=== PATIENT | male | born 1990 | race Caucasian/White ===

== ENCOUNTER 2016-06-26 23:23 | Emergency (ER) | payer SELFPAY ==
[2016-06-26] MEDS ORDERED: Ondansetron ODT 4 MG TAB ONE (23:28)
[2016-06-26 23:48] LABS: Bilirubin Negative (Negative); Blood, Urine Negative (Negative); Clarity Clear (Clear); Glucose, Urine (Dipstick) Negative (Negative); Leukocyte Negative (Negative); Nitrite Negative (Negative); Protein, Urine (Dipstick) 30 mg/dL (Neg-Trace); pH, Urine 8.5 (5.0-9.0)
[2016-06-26 23:54] LABS: Bacteria/HPF Rare-Few HPF (None Seen); RBC/HPF 0-3 HPF (0-3); WBC/HPF 0-3 HPF (0-3)
[2016-06-26] MEDS ORDERED: Metoclopramide HCl 10 MG/2 ML VIAL ONE (23:54)
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
== END 2016-06-27 00:15 | disposition home or self-care (01) ==
LOC: MADERS 23:23
DX: R11.2 Nausea with vomiting, unspecified (principal); F32.9 Major depressive disorder, single episode, unspecified; F17.210 Nicotine dependence, cigarettes, uncomplicated
CPT/HCPCS: 81003; 81015; 96372; J2765; Q0162

== ENCOUNTER 2021-07-21 | Emergency (ER) | payer BC, SELFPAY ==
[2021-07-21] MEDS ORDERED: Sodium Chloride 0.9% 1,000 ML ONE (00:19)
[2021-07-21] MEDS ORDERED: Prochlorperazine 10 MG/2 ML VIAL ONE (00:19)
[2021-07-21] MEDS ORDERED: diphenhydrAMINE 50 MG/ML VIAL ONE (00:26)
[2021-07-21] MEDS ORDERED: methylPREDNISolone Sod Succ/PF 125 MG/2 ML VIAL ONE (00:26)
[2021-07-21] MEDS ORDERED: methylPREDNISolone Acetate 40 mg/ml Vial ONE (00:28)
[2021-07-21] MEDS ORDERED: Famotidine/PF 20 mg/2ml Vial ONE (00:28)
[2021-07-21 00:41] LABS: #Basophils 0.1 thou/uL (0.0-0.2); #Eosinphils 0.3 thou/uL (0.0-0.7); #Monocytes 0.4 thou/uL (0.11-0.59); #Neutrophils 2.8 thou/uL (1.40-6.50); %Basophils 1.4 % (0.0-1.0); %Monocytes 7.6 % (0.0-10.0); %Neutrophils 50.1 % (42.0-75.0); Hemoglobin 14.5 g/dL (14.0-18.0); Mean Corpuscular HGB CONC 33.4 g/dL (32.0-36.0); Mean Corpuscular Volume 83.9 fL (78.0-98.0); Mean Platelet Volume 7.9 fL (7.4-10.4); Platelet Count 220 thou/uL (130-400); RBC Distribution Width 12.1 % (11.5-14.5); Red Blood Cell (RBC) Count 5.18 mill/uL (4.70-6.10); White Blood Cell (WBC) Count 5.6 thou/uL (4.8-10.8)
[2021-07-21 01:02] LABS: ALT (SGPT) 33 U/L (8-55); AST (SGOT) 35 U/L (5-34); Albumin 4.1 g/dL (3.5-5.0); Alkaline Phosphatase 82 U/L (40-110); Anion Gap 11 mmol/L (10-20); BUN (Urea Nitrogen) 18 mg/dL (8.9-20.6); Bilirubin, Total 0.4 mg/dL (0.2-1.2); Calc. Creatinine Clearance 0 mL/min (70-130); Calcium 8.8 mg/dL (7.8-10.44); Carbon Dioxide 28 mmol/L (22-29); Chloride 105 mmol/L (98-107); Glucose 113 mg/dL (70-105); Lipase 31 U/L (8-78); Potassium 3.3 mmol/L (3.5-5.1); Protein, Total 7.1 g/dL (6.0-8.3); Sodium 141 mmol/L (136-145)
[2021-07-21 01:59] LABS: Bilirubin Negative (Negative); Blood, Urine Negative (Negative); Clarity Clear (Clear); Glucose, Urine (Dipstick) Negative (Negative); Ketone, Urine Negative (Negative); Leukocyte Negative (Negative); Nitrite Negative (Negative); Protein, Urine (Dipstick) Negative (Neg-Trace)
[2021-07-21] MEDS ORDERED: Iopamidol 370 76% 100 ML VIAL ONE (10:50)
== END 2021-07-21 03:53 | disposition home or self-care (01) ==
LOC: MADERS
DX: R11.2 Nausea with vomiting, unspecified (principal); R10.84 Generalized abdominal pain; I10 Essential (primary) hypertension; F17.200 Nicotine dependence, unspecified, uncomplicated; Z87.19 Personal history of other diseases of the digestive system
CPT/HCPCS: 74177; 80053; 81003; 83605; 83690; 85025; 96365; 96375; J0780; J1200; J2920; J2930; J7050; Q9967; S0028

== ENCOUNTER 2022-06-23 | Emergency (ER) | payer SELFPAY ==
[2022-06-23 00:39] LABS: #Basophils 0.1 thou/uL (0.0-0.2); #Eosinphils 0.3 thou/uL (0.0-0.7); #Lymphocytes 2.9 thou/uL (1.20-3.40); #Monocytes 0.4 thou/uL (0.11-0.59); #Neutrophils 4.9 thou/uL (1.40-6.50); %Basophils 1.1 % (0.0-1.0); %Eosinophils 3.5 % (0.0-10.0); %Lymphocytes 33.5 % (21.0-51.0); %Monocytes 4.7 % (0.0-10.0); %Neutrophils 57.1 % (42.0-75.0); Hemoglobin 15.5 g/dL (14.0-18.0); Mean Corpuscular HGB CONC 33.6 g/dL (32.0-36.0); Mean Corpuscular Hemoglobin 27.9 pg (27.0-31.0); Mean Platelet Volume 8.6 fL (7.4-10.4); Platelet Count 273 10x3/uL (130-400); RBC Distribution Width 11.4 % (11.5-14.5); Red Blood Cell (RBC) Count 5.55 mill/uL (4.70-6.10); White Blood Cell (WBC) Count 8.6 10x3/uL (4.8-10.8)
[2022-06-23 01:00] LABS: ALT (SGPT) 45 U/L (8-55); AST (SGOT) 35 U/L (5-34); Albumin 4.2 g/dL (3.5-5.0); Alkaline Phosphatase 95 U/L (40-110); Anion Gap 14 mmol/L (10-20); BUN (Urea Nitrogen) 10 mg/dL (8.9-20.6); Bilirubin, Total 0.5 mg/dL (0.2-1.2); Calc. Creatinine Clearance 0 mL/min (70-130); Carbon Dioxide 23 mmol/L (22-29); Chloride 107 mmol/L (98-107); Estimated GFR 97; Globulin 3.1 g/dL (2.4-3.5); Glucose 106 mg/dL (70-105); Magnesium 2.1 mg/dL (1.6-2.6); Potassium 4.1 mmol/L (3.5-5.1); Protein, Total 7.3 g/dL (6.0-8.3); Sodium 140 mmol/L (136-145)
== END 2022-06-23 03:22 | disposition home or self-care (01) ==
LOC: MADERS
DX: R07.9 Chest pain, unspecified (principal); I10 Essential (primary) hypertension; F17.200 Nicotine dependence, unspecified, uncomplicated
CPT/HCPCS: 71045; 80053; 83735; 83880; 84484; 85025; 93005

== ENCOUNTER 2024-06-09 09:20 | Emergency (ER) | payer OTHER | END 2024-06-09 09:25 | disposition left against medical advice (07) | LOC: MADERS 09:20 | DX: Z53.21 Procedure and treatment not carried out due to patient leaving prior to being seen by health care provider (principal) ==